=== PATIENT | female | born 1965 | race Caucasian/White ===

== ENCOUNTER 2016-12-21 18:56 | Emergency (ER) | payer MEDICARE ==
[~2016-12-21] VITALS: Ht 170.2 cm; Wt 97.2 kg
[~2016-12-21 18:56] MED LIST: PRILOSEC OTC20 MG PO; ZOCOR40 MG PO
[2016-12-21] MEDS ORDERED: MOTRIN800 MG PO (21:02)
[2016-12-21 21:10] VITALS: BP 151/89
== END 2016-12-21 21:14 | disposition home or self-care (01) ==
LOC: EME 18:56
DX: M25.552 Pain in left hip (principal); K21.9 Gastro-esophageal reflux disease without esophagitis; E78.5 Hyperlipidemia, unspecified
CPT/HCPCS: 73502; 99281; 99283